=== PATIENT | male | born 1970 | race Caucasian/White ===

== ENCOUNTER → 2016-08-21 | Outpatient (CLI) | payer OTHER ==
[~2016-08-21] MED LIST: IBUPROFEN800 MG PO; NORCO 5-325 TA1 EACH PO; NORCO 7.5-3251 EACH PO; ZOFRAN4 MG PO
== END ==
LOC: KOH-I 13:37
DX: M25.572 Pain in left ankle and joints of left foot (principal)
CPT/HCPCS: 73610

== ENCOUNTER 2021-09-17 17:13 | Emergency (ER) | payer BC ==
[2021-09-17 18:21] LABS: HEMOGLOBIN 14.9 gm/dl (14.0-17.5); RED BLOOD COUNT 4.7 M/UL (4.20-5.50); WHITE BLOOD COUNT 6.6 K/UL (4.5-11.0)
[2021-09-17 18:37] LABS: BUN/CREATININE RATIO 15 (0-10)
[2021-09-17] MEDS ORDERED: PERCOCET 5/325 T1 EA PO (22:16)
[2021-09-17] MEDS ORDERED: ONDANSETRON ODT4 MG SL (22:26)
[2021-09-17] MEDS ORDERED: FLOMAX 0.4 MG0.4 MG PO (22:26)
== END 2021-09-17 23:05 | disposition home or self-care (01) ==
LOC: ER1 17:13
PROVIDERS: Emergency Medicine
DX: N13.2 Hydronephrosis with renal and ureteral calculous obstruction (principal); Z90.89 Acquired absence of other organs; Z90.49 Acquired absence of other specified parts of digestive tract; F17.200 Nicotine dependence, unspecified, uncomplicated; Z88.6 Allergy status to analgesic agent
CPT/HCPCS: 80053; 81001; 83690; 85025; 96361; 96374; 96375; 99284; J2270; J2405